=== PATIENT | female | born 2005 | race Caucasian/White ===

== ENCOUNTER 2025-02-13 17:09 | Emergency (ER) | payer BC ==
[2025-02-13 18:42] LABS: Influenza A Ag Negative; Influenza B Ag Negative; SARS-CoV-2 Antigen Rapid Res Negative (Negative)
[2025-02-13 18:45] LABS: Specific Gravity 1.021 (1.005-1.030); Urine Bacteria <20 /HPF (<20); Urine Bilirubin NEGATIVE (Negative); Urine Blood Negative (Negative); Urine Clarity Turbid (Clear); Urine Color Light-Yellow (Yellow); Urine Culture Reflex Order REFLEXED; Urine Glucose NEGATIVE (Negative); Urine Ketones 4+ (Over) (Negative); Urine Microscopic Reflex YN ORDER UMIC; Urine Mucus Slight /HPF (None Seen); Urine Nitrite NEGATIVE (Negative); Urine Protein NEGATIVE (Negative); Urine RBC None Seen /HPF (None Seen); Urine Urobilinogen Normal (Normal); Urine WBC None Seen /HPF (<5)
[2025-02-13 20:08] LABS: Absolute Lymphocytes (CBC) 0.6 K/uL (0.7-4.9); Absolute Monocytes 0.7 K/uL (0.1-1.3); Absolute Neutrophil 3.8 K/uL (1.8-8.0); Basophils % 0.1 % (0-1.3); Eosinophils % 0.2 % (0-4.4); Hematocrit 38.1 % (36.0-45.0); Hemoglobin 13.7 g/dL (12.0-15.0); MCH 32.8 pg (27.0-35.0); MCHC 35.8 g/dL (32.0-36.0); MCV 91.5 fL (80-100); MPV 7.2 fL (7.6-11.3); Monocytes % 14.2 % (3.3-12.3); Neutrophils % 74.5 % (41.7-73.7); Nucleated Red Blood Cells % 0.1 % (0-0); Platelets 173 thou/uL (152-406); RBC Red Blood Cell Count 4.17 M/uL (3.86-4.86); Red Cell Distribution Width 12.5 % (12.1-15.2)
[2025-02-13 20:25] LABS: Anion Gap 9.4 mEq/L (5.0-15.0); Potassium 3.4 mEq/L (3.5-5.1)
[2025-02-13] MEDS ORDERED: NA CHLORIDE 0.9% 2,000 ML ONE (21:26)
[2025-02-13] MEDS ORDERED: ACETAMINOPHEN 500 MG TAB ONE (21:26)
[2025-02-13] MEDS ORDERED: ONDANSETRON 4 MG/2 ML VIAL ONE (21:26)
--- NOTE | 2025-02-13 22:52 | EDPHYS ---
Physician Documentation [facility] Name: Tayler Evans Age: 19 yrs Sex: Female : 2005 Arrival Date: 02/13/2025 Time: 17:09 Bed 12 Private MD: ED Physician Tunde Song HPI: 02/13 18:08 This 19 yrs old Female presents to ER via Ambulatory with complaints of Vomiting, sb4 Fever, 9 weeks . 18:08 The patient presents to the emergency department with nausea, vomiting. Patient states sb4 she is approximately 9 weeks . . Has been dealing with a lot of morning sickness. However, states that she spiked a fever last night and has had worse nausea vomiting since this morning. She additionally endorses right low back pain. States she was diagnosed with a UTI at her last OB appointment but was given a one-time dose of antibiotics. States she never had symptoms. Denies any current urinary symptoms. Denies any lower abdominal cramping or vaginal bleeding. 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 - Infectious Disease History:: Denies. - Social history:: Smoking status: Reported history of juuling and/or vaping. ROS: 18:08 : Negative for injury, bleeding, discharge, and swelling, sb4 18:08 Constitutional: Positive for fever, 18:08 Abdomen/GI: Positive for nausea and vomiting, 18:08 Back: Positive for flank pain, on the right, 18:08 All other systems are negative, Exam: 18:08 Constitutional: This is a well developed, well nourished patient who is awake, alert, sb4 and in no acute distress. Head/Face: Normocephalic, atraumatic. Eyes: Extra-ocular motions intact. Periorbital areas with no swelling, redness, or edema. ENT: Mucous membranes moist. Cardiovascular: Regular rate and rhythm with a normal S1 and S2. Respiratory: No increased work of breathing, no retractions or nasal flaring. Abdomen/GI: Soft, non-tender, no distension. Skin: Warm, dry with normal turgor. Normal color with no rashes, no lesions, and no evidence of cellulitis. 18:08 Back: CVA tenderness, that is mild, is noted on the right, Vital Signs: 18:00 BP 130 / 85; Pulse 107; Resp 18; Temp 99.1; Pulse Ox 100% ; Weight 63.5 kg; Height 5 me1 ft. 4 in. ; Pain 7/10; 22:00 BP 135 / 92; Pulse 85; Resp 17; Pulse Ox 100% on R/A; ha1 23:00 BP 128 / 85; Pulse 81; Resp 18 S; Pulse Ox 100% on R/A; ha1 18:00 Body Mass Index 24.03 (63.50 kg, 162.56 cm) - Percentile 73.7 % me1 18:00 Pain Scale: Adult me1 MDM: 17:23 Medical Screening Exam initiated sb4 22:52 Differential diagnosis: viral illness, UTI, dehydration. Data reviewed: vital signs, sb4 nurses notes, lab test result(s), and as a result, I will discharge patient. Counseling: I had a detailed discussion with the patient and/or guardian regarding the historical points, exam findings, and any diagnostic results supporting the discharge/admit diagnosis, lab results, the need for outpatient follow up, an OB/Gyne specialist, to return to the emergency department if symptoms worsen or persist or if there are any questions or concerns that arise at home. 02/13 18:03 Order name: CBC with Diff; Complete Time: 20:19 4 02/13 18:03 Order name: BMP; Complete Time: 20:28 sb4 02/13 18:03 Order name: UA Rfx Narinder Cult if indicated; Complete Time: 18:46 sb4 02/13 18:03 Order name: COVID-19 Ag + Flu A+B Ag; Complete Time: 18:43 sb4 02/13 18:48 Order name: Urine Culture EDWI 02/13 18:03 Order name: IV Start; Complete Time: 21:17 sb4 02/13 20:28 Order name: PO challenge; Complete Time: 21:17 sb4 Administered Medications: 21:01 Drug: Acetaminophen PO 500 mg PO once Route: PO; ha1 23:00 Follow up: Response: No adverse reaction; Pain is decreased ha1 21:02 Drug: NS 0.9% IV 1000 ml IV at 1 bolus Per protocol; to be given as a bolus over 60 ha1 minutes Route: IV; Rate: 1 bolus; Site: left upper arm; 23:19 Follow up: Response: No adverse reaction; IV Status: Completed infusion ha1 21:02 Drug: NS 0.9% IV 1000 ml IV at 1000 ml once; to be given as a bolus over 60 minutes ha1 Route: IV; Rate: 1000 ml; Site: left upper arm; 23:19 Follow up: Response: No adverse reaction; IV Status: Completed infusion ha1 22:02 Not Given (Patient Refused): ondansetron 4 mg IVP once; over 2 minutes ha1 Disposition: 02/14 19:24 Co-signature as Attending Physician, Tunde Song MD I agree with the assessment and wale plan of care. Disposition Summary: 02/13/25 22:51 Discharge Ordered Notes: Location: Home sb4 Problem: new sb4 Symptoms: have improved sb4 Condition: Stable sb4 Diagnosis - Vomiting of , unspecified sb4 Followup: sb4 - With: Private Physician - When: 1 week - Reason: Recheck today's complaints, Re-evaluation by your physician Discharge Instructions: - Discharge Summary Sheet sb4 - Morning Sickness, [id number] sb4 - First Trimester of , [id number] sb4 Forms: - Patient Portal Instructions sb4 - Leadership Thank You Letter sb4 Prescriptions: - ondansetron 4 mg Oral Tablet,disintegrating - take 1 tablet ORAL route every 6 hours as needed for nausea and vomiting; 20 sb4 tablet; Refills: 0, Product Selection Permitted Signatures: Dispatcher [employer] Tunde Connell MD MD cha Ayala, Heidy, RN RN ha1 Joan Cortes, PA-C PA-C sb4 Flor Lui, RN RN me1 Corrections: (The following items were deleted from the chart) 02/13 18:03 18:03 CBC+H.LAB.BRZ ordered. EDMS EDMS 18:03 18:03 BASIC METABOLIC PANEL+C.LAB.BRZ ordered. EDMS EDMS 18:03 18:03 UA Rfx Narinder Cult if indicated+U.LAB.BRZ ordered. EDMS EDMS 18:03 18:03 COVID-19 Ag + Flu A+B Ag+I.LAB.BRZ ordered. EDMS EDMS 18:04 18:04 Allergies: No Known Allergies; me1 me1
--- NOTE | 2025-02-13 22:52 | ER ---
Nurse's Notes [facility] Name: Tayler Evans Age: 19 yrs Sex: Female : 2005 Arrival Date: 02/13/2025 Time: 17:09 Bed 12 Private MD: Diagnosis: Vomiting of , unspecified Presentation: 02/13 18:00 Chief complaint: Patient states: 9 weeks , n/v since 6 weeks but has been worse me1 the past few days. fever started last night. Patient did have a UTI recently at OB appt and took a one time dose of antibiotic that was prescribed. c/o R lower back pain. Coronavirus screen: Vaccine status: Patient reports being unvaccinated. Ebola Screen: No symptoms or risks identified at this time. Initial Sepsis Screen: Does the patient meet any 2 criteria? No. Patient's initial sepsis screen is negative. Does the patient have a suspected source of infection? No. Patient's initial sepsis screen is negative. Risk Assessment: Do you want to hurt yourself or someone else? Patient reports no desire to harm self or others. Onset of symptoms was February 12, 2025. 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 - Infectious Disease History:: Denies. - Social history:: Smoking status: Reported history of juuling and/or vaping. Screenin:15 [facility] ED Fall Risk Assessment (Adult) History of falling in the last 3 months, ha1 including since admission No falls in past 3 months (0 pts) Confusion or Disorientation No (0 pts) Intoxicated or Sedated No (0 pts) Impaired Gait No (0 pts) Mobility Assist Device Used No (0 pt) Altered Elimination No (0 pt) Score/Fall Risk Level 0 - 2 = Low Risk Oriented to surroundings, Maintained a safe environment, Educated pt \T\ family on fall prevention, incl call for assistance when getting out of bed, Hourly rounding (assess needs \T\ fall precautionary measures) done. Abuse screen: Denies threats or abuse. Denies injuries from another. Nutritional screening: No deficits noted. Tuberculosis screening: No symptoms or risk factors identified. Assessment: 20:00 General: Appears comfortable, Behavior is calm, cooperative. Pain: Complains of pain in ha1 HEADACHE Pain currently is 7 out of 10 on a pain scale. Quality of pain is described as aching. Cardiovascular: Capillary refill < 3 seconds Patient's skin is warm and dry. Respiratory: Airway is patent Respiratory effort is even, unlabored, Respiratory pattern is regular, symmetrical. GI: Abdomen is round non-distended, Reports nausea. Derm: Skin is pink, warm \T\ dry. 21:00 Reassessment: Patient and/or family updated on plan of care and expected duration. Pain ha1 level reassessed. Patient is alert, oriented x 3, equal unlabored respirations, skin warm/dry/pink. 22:00 Reassessment: Patient and/or family updated on plan of care and expected duration. Pain ha1 level reassessed. Patient is alert, oriented x 3, equal unlabored respirations, skin warm/dry/pink. Patient states feeling better. Patient states symptoms have improved. 23:09 Reassessment: Patient and/or family updated on plan of care and expected duration. Pain ha1 level reassessed. Patient is alert, oriented x 3, equal unlabored respirations, skin warm/dry/pink. Patient denies pain at this time. Patient states feeling better. Patient states symptoms have improved. Vital Signs: 18:00 BP 130 / 85; Pulse 107; Resp 18; Temp 99.1; Pulse Ox 100% ; Weight 63.5 kg; Height 5 me1 ft. 4 in. ; Pain 7/10; 22:00 BP 135 / 92; Pulse 85; Resp 17; Pulse Ox 100% on R/A; ha1 23:00 BP 128 / 85; Pulse 81; Resp 18 S; Pulse Ox 100% on R/A; ha1 18:00 Body Mass Index 24.03 (63.50 kg, 162.56 cm) - Percentile 73.7 % me1 18:00 Pain Scale: Adult va1 ED Course: 17:11 Patient arrived in ED. im 17:17 Brown, Joan, PA-C is PHCP. sb4 17:17 Tunde Song MD is Attending Physician. sb4 18:04 Triage completed. me1 18:04 Arm band placed on Patient placed in waiting room. me1 18:08 COVID swab sent to lab. me1 18:25 Urine collected: clean catch specimen, cloudy. me1 20:00 Patient has correct armband on for positive identification. Bed in low position. Call ha1 light in reach. Side rails up X 1. 20:00 Provided Education on: PLAN OF CARE. ha1 20:03 Missed attempt(s): 20 gauge in left forearm. oe 20:05 Initial lab(s) drawn, by me, sent to lab. lp2 21:00 Inserted saline lock: 24 gauge in left upper arm, using aseptic technique. Blood ha1 collected. Flushed with 10 mL NS. 23:17 No provider procedures requiring assistance completed. IV discontinued, intact, ha1 bleeding controlled, No redness/swelling at site. Pressure dressing applied. Administered Medications: 21:01 Drug: Acetaminophen PO 500 mg PO once Route: PO; ha1 23:00 Follow up: Response: No adverse reaction; Pain is decreased ha1 21:02 Drug: NS 0.9% IV 1000 ml IV at 1 bolus Per protocol; to be given as a bolus over 60 ha1 minutes Route: IV; Rate: 1 bolus; Site: left upper arm; 23:19 Follow up: Response: No adverse reaction; IV Status: Completed infusion ha1 21:02 Drug: NS 0.9% IV 1000 ml IV at 1000 ml once; to be given as a bolus over 60 minutes ha1 Route: IV; Rate: 1000 ml; Site: left upper arm; 23:19 Follow up: Response: No adverse reaction; IV Status: Completed infusion ha1 22:02 Not Given (Patient Refused): ondansetron 4 mg IVP once; over 2 minutes ha1 Medication: 23:20 VIS not applicable for this client. ha1 Outcome: 22:51 Discharge ordered by . sb4 23:19 Discharged to home ambulatory, with family, ha1 23:19 Condition: stable 23:19 Discharge instructions given to patient, Instructed on discharge instructions, follow up and referral plans. Demonstrated understanding of instructions, follow-up care, 23:20 Patient left the ED. ha1 Signatures: Castillo Tello Heidy, RN RN ha1 Joan Cortes PASantiago PA-C sb4 Sienna Roldan Michelle, RN RN me1 Keara Castillo lp2 Corrections: (The following items were deleted from the chart) 18:04 18:04 Allergies: No Known Allergies; me1 me1 18:05 18:04 LMP 12/08/2024, unknown me1 me1
[2025-02-13 23:37] VITALS: TEMP 99.1; O2SAT 100
[2025-02-13 23:41] VITALS: BP 128/85
== END 2025-02-13 23:20 | disposition home or self-care (01) ==
LOC: ER 17:09
DX: O21.9 Vomiting of pregnancy, unspecified (principal); Z3A.09 9 weeks gestation of pregnancy; Z11.52 Encounter for screening for COVID-19
CPT/HCPCS: 96361; 87088; 85025; 81001; 87086; 80048; 36415; 96360; 99284; 87428; J7030; J2405